=== PATIENT | male | born 2000 | race Caucasian/White ===

== ENCOUNTER 2025-04-26 07:31 | Emergency (ER) | payer BC, SELFPAY ==
[2025-04-26 07:35] VITALS: BP 125/90
--- NOTE | 2025-04-26 07:43 | ED.GENMED ---
History of Present Illness
General
Chief Complaint: Abdominal Symptoms
Source: patient
Exam Limitations: none
Time Seen by Provider: 04/26/25 07:39
Nursing documentation reviewed up to this point in time: agreed with
History of Present Illness
History of Present Illness:
Patient is a 24 y.o male w/ hx Crohns disease who presents to the emergency department w/ 1 day of abdominal pain, vomiting and diarrhea. Patient reports initial onset of symptoms yesterday morning however by the afternoon they seem to improve.
Unfortunately as patient states he woke up around 3:30 AM with significant nausea and severe abdominal pain. He has had intractable vomiting and diarrhea since. He states emesis dark with occasional specks of blood. He denies any bloody diarrhea.
Abdominal pain is 10/10 in severity and somewhat diffusely located throughout abdomen.
He has no known fevers. He states symptoms feel similar to prior Crohn's flares. He was able to tolerate some food/acid afternoon once symptoms improved
He is currently on Humira however has been having some insurance coverage problems and has only been taking it about once a month although it is prescribed to be taken biweekly.
Past History
Past History
ED Past Medical History: Psychiatric (depression, anxiety) and Other (crohn's )
ED Past Surgical History: Other (drainage of abscess)
Social History
Tobacco: Non-smoker
Alcohol: Occasional
Drug: Marijuana (occasional but none recently)
Personal: Single
Living: with family
Phy Exam
Physical Exam
Physical Exam:
Vitals: Patient's vital signs are stable. Afebrile
General: Patient is pale appearing
Skin: Warm and dry, no rashes or lesions
Head: Normocephalic, atraumatic
Eyes: Sclera nonicteric.
Throat: Protecting airway
Neck: Normal ROM, no cervical spine tenderness, no meningismus
Cardiac: Regular rate and rhythm, no murmurs.
Pulm: Normal respiratory effort, no wheezes, rales, rhonchi heard on exam
Abdomen: Abdomen soft. Mild diffuse tenderness without rebound tenderness or guarding. No focal tenderness McBurney's point.
Extremities: No evidence of cyanosis or edema
Neuro: AAOx3. Grossly intact.
Psychiatric: Normal affect.
Course
Orders/Labs/Results
Orders:
Orders
04/26/25 07:42
IV Insert/Care/Rem.- Treatment PRN
04/26/25 07:47
0.9% Sodium Chloride 1000 ml [Nss] 1,000 ml IV BOLUS
04/26/25 07:49
C-Reactive Protein Urgent
Comment: ADD ON
Complete Blood Count/With Diff Urgent
Comprehensive Metabolic Panel Urgent
Erythrocyte Sed Rate Urgent
Comment: ADD ON
Lipase Urgent
04/26/25 07:53
HYDROmorphone [Dilaudid] 0.5 mg IV NOW STA
Ondansetron Injectable [Zofran] 4 mg IV NOW STA
04/26/25 07:54
CT Abd/pelvis W Iv Cont Urgent
Comment: hx Crohns
Reason For Exam: Diffuse abdominal pain, N/V/D
04/26/25 09:06
Metoclopramide [Reglan] 10 mg IV NOW STA
04/26/25 09:27
HYDROmorphone [Dilaudid] 0.5 mg IV NOW STA
04/26/25 12:30
Add On- LAB Routine
Tests Added?: CRP, ESR
04/26/25 12:34
Consult Gastroenterology [GASTROINTESTINAL CONSULT] Routine
Consulting Provider: Stacia Hoang
Was physician already notified: Yes
04/26/25 13:25
Prednisone [Deltasone] 40 mg PO NOW STA
Abnormal Lab Results
04/26/25
07:49
WBC 18.6 H 10^3/uL
(4.8-10.8)
MCH 31.8 H pg
(27.0-31.0)
MCHC 37.1 H g/dL
(33.0-37.0)
Abs Immat Gran (auto) 0.1 H 10^3/uL
(0-0.05)
Absolute Neuts (auto) 15.4 H 10^3/uL
(1.4-6.5)
Absolute Monos (auto) 1.2 H 10^3/uL
(0.1-0.6)
Neutrophils % 83.0 H %
(42.2-75.2)
Lymphocytes % 9.2 L %
(20.5-51.1)
Glucose 150 H mg/dl
(70-99)
Total Protein 8.7 H g/dl
(6.3-8.2)
Albumin 5.4 H g/dl
(3.5-5.0)
04/26/25 07:49
04/26/25 07:49
Vital Signs
Initial and Last Documented VS:
Initial Vital Signs
Temp Pulse Resp BP Pulse Ox
98.0 F 60 16 125/90 99
04/26/25 07:35 04/26/25 07:35 04/26/25 07:35 04/26/25 07:35 04/26/25 07:35
Last Documented Vital Signs
Temp Pulse Resp BP Pulse Ox
98.0 F 82 16 120/81 99
04/26/25 07:35 04/26/25 13:42 04/26/25 13:42 04/26/25 13:42 04/26/25 10:49
MDM/Problems Addressed
Differential Diagnosis Includes:
Not limited to: Crohn's flare, gastroenteritis, colitis, appendicitis, diverticulitis, gastritis, etc.
MDM/Problems Addressed:
24 y.o male w/ hx Crohns presenting with 1 day of severe abdominal pain associated with intractable nausea/vomiting/diarrhea. Feels similar to prior flares of Crohn's disease. No fever. Vitals and physical exam as above.
Differential includes likely acute exacerbation of Crohn's disease, however unable to completely exclude other intra-abdominal pathology such as appendicitis, cholecystitis, carditis, etc. Plan: Labs, CT scan abdomen/pelvis. Will treat symptoms
and reassess after above.
Update: Labs significant leukocytosis of 18.6. Chemistry without clinically significant abnormalities. CT scan reveals colitis and distal ileitis suspicious for Crohn's disease flare. Do not suspect acute infection.
Patient has required multiple rounds of IV antiemetics and pain control in emergency department. Will admit for further management and symptom control. Patient comfortable with plan. Discussed with GI, Dr. Moreno. Will hold any steroid or
antibiotics at this time. Patient accepted to hospital service in stable condition.
Chronic conditions affecting care:
Crohn's disease
Acute Exacerbation and/or Progression of Chronic Illness:
Acute crohn's flare
*Radiology
Radiology exam reviewed: radiology read reviewed
*Pulse Oximetry
SaO2: 99
Oxygen Mode of Delivery: Room air
Patient hypoxic: no
*EKG
Interpreted by ED Provider?: NA
*[employer] Airspace Control Officer Interpretation
Rate: [employer] Control Officer- N/A
*Critical Care Note
Total Time (30-74mins, 75-104mins- exclusive of procedures): Not Applicable
Patient Management
Discussion with other providers: Hospitalist and [employer] Rec[employer]iter (Case discussed w/ gastroenterology)
Escalation/DeEscalation of care consider admission/obs:
Recommended admission
Update Note
Update Note:
Update: I was called to patients room at 12:50. Patient was accepted to hospitalist service around 1045AM however admitting physician has not been down to evaluate patient thus far. Patient is now feeling almost completely better. His pain is gone.
He has not had any episodes of nausea/vomiting in a few hours and is tolerating PO liquids. Recommended admission for continued management of symptoms however patient ademant that he would like to go home and will follow - up with his outside GI
physician in a few days. Discussed with out GI, Dr. Hoang and will plan to start patient on two week course of prednisone. Very strict return precautions discussed.
ED Attending Note
-
Portions of this chart may have been created with voice recognition software.� Occasional wrong word or��sound alike� substitutions may have occurred due to the inherent limitations of voice recognition software.
Discharge Plan
Departure
Patient Disposition: Home (Routine Discharge)
Date of Disposition: 04/26/25
Time of Disposition: 10:39
Patient with high blood pressure during this ER visit?: No
Discharge Problem:
Crohn's colitis
Instructions: Crohn disease in adults, Abdominal pain in adults - ED (DC)
Prescriptions:
New
ondansetron 4 mg tablet,disintegrating
4 mg PO Q8H PRN (Reason: nausea and vomiting) Qty: 7 0RF
prednisone 20 mg tablet
40 mg PO DAILY 14 Days Qty: 26 0RF
No Action
calcium carbonate [Tums] 200 mg calcium (500 mg) Tablet,Chewable
200 mg PO QIDPRN PRN (Reason: acid reflux)
buspirone 15 mg tablet
15 mg PO TID
duloxetine 40 mg capsule,delayed release(DR/EC)
40 mg PO HS
adalimumab 80 mg/0.8 mL Pen Injector Kit
80 mg SC Q2W
Referrals:
Soledad Velasquez MD [Family Provider, Internal Medicine] - Follow up in 5-7 days
Stand Alone Forms: Return to Work
Activity Restrictions/Additional Instructions:
RETURN TO THE EMERGENCY DEPARTMENT ANY FEVERS, PERSISTENT/WORSENING ABDOMINAL PAIN, INTRACTABLE NAUSEA/VOMITING, PERSISTENT DIARRHEA, SIGNS OF SEVERE DEHYDRATION, WORSENING IN CURRENT SYMPTOMS, OR ANY OTHER CONCERNS
- A prescription for prednisone has been sent to your pharmacy. Take 40 mg for the next 2 weeks. You were given your first dose in the emergency department today.
- Continue to take Tylenol and/or Motrin as needed for pain. You can take Zofran as needed for nausea. It is important to stay well-hydrated. Follow a bland diet and slowly advance as tolerated.
- As discussed�it is very important that you follow-up with your GI doctor shortly for further management.
Monitor your symptoms very closely at home and return to the emergency department with any acute worsening/new symptoms or any signs of worsening infection
Interventions
Interventions:
*Risk Screen - Suicide Last Done: 04/26/25 07:35
*General Assessment Last Done: 04/26/25 07:45
*Neglect/Abuse Screening Last Done: 04/26/25 07:35
*ED- Fall Risk Assessment Last Done: 04/26/25 07:45
*ED COVID-19 Vaccine History Last Done: 04/26/25 07:45
*Nursing Disposition Last Done: 04/26/25 13:48
ET-Cfdwvb-Ppukevgruy Assessment Last Done: 04/26/25 07:45
Discharge Date and Time
Discharge Date/Time: 04/26/25 13:48
Print Language: TANZANIAN
[2025-04-26 07:45] VITALS: BMI 23.7
[2025-04-26] MEDS: NSS 1000 IV (07:48)
[2025-04-26] MEDS: DILAUDID 0.5 MG IV ×2 (08:00→09:42)
[2025-04-26] MEDS: ZOFRAN 4 MG IV (08:01)
[2025-04-26 08:02] LABS: Hematocrit 45.8 % (39.0-52.0); Hemoglobin 17.0 g/dL (13.0-18.0); Mean Corp Hgb Conc. 37.1 g/dL (33.0-37.0); Mean Corpuscular Volume 85.6 fL (80.0-94.0); Nucleated Red Blood Cells % 0 % (-); Platelet Count 311 10^3/uL (130-400); Red Cell Dist. Width 11.9 % (11.5-14.5)
[2025-04-26 08:27] LABS: ALT (SGPT) 25 U/L (0-50); AST (SGOT) 28 U/L (17-59); Albumin 5.4 g/dl (3.5-5.0); Alkaline Phosphatase 78 U/L (38-126); Blood Urea Nitrogen 11 mg/dl (9-20); Calcium 10.2 mg/dl (8.4-10.2); Carbon Dioxide 23 mmol/L (22-30); Chloride 104 mmol/L (98-107); Estimated Creatinine Clearance 121 ml/min; Glucose 150 mg/dl (70-99); Lipase 157 U/L (23-300); Potassium 3.6 mmol/L (3.5-5.1); Sodium 142 mmol/L (135-145); Total Protein 8.7 g/dl (6.3-8.2); eGFR > 60.00
[2025-04-26] MEDS: REGLAN 10 MG IV (09:10)
[2025-04-26 09:13] VITALS: BP 134/92
[2025-04-26 10:49] VITALS: BP 100/59
[2025-04-26 13:42] VITALS: BP 120/81
[2025-04-26] MEDS: DELTASONE 40 MG PO (13:42)
[2025-04-26 14:30] LABS: C-Reactive Protein < 5.00 mg/L (0.0-10.00)
== END 2025-04-26 13:48 | disposition home or self-care (01) ==
LOC: EMR 07:31
PROVIDERS: CONSULT PHYSICIAN Internal Medicine; EMERGENCY PHYSICIAN Student in an Organized Health Care Education/Training Program; FAMILY PHYSICIAN Family Medicine
DX: K50.10 Crohn's disease of large intestine without complications (principal); D72.829 Elevated white blood cell count, unspecified; F41.9 Anxiety disorder, unspecified; F32.A Depression, unspecified
CPT/HCPCS: 99284; 96374; 96375 ×2; 96376; 96361; 74177; 80053; 83690; 85025; 85652; 86140; Q9967

== ENCOUNTER 2025-04-28 10:49 | Inpatient (IN) | payer BC, SELFPAY ==
[2025-04-28 08:39] VITALS: BP 155/74
[2025-04-28] MEDS: NSS 1000 IV ×3 (08:58→22:37)
[2025-04-28] MEDS: DILAUDID 0.5 MG IV ×3 (09:00→19:29)
[2025-04-28] MEDS: ZOFRAN 4 MG IV ×2 (09:00→09:58)
[2025-04-28 09:01] VITALS: BMI 23.9
[2025-04-28 09:15] LABS: Hematocrit 45.1 % (39.0-52.0); Hemoglobin 16.7 g/dL (13.0-18.0); Mean Corp Hgb Conc. 37.0 g/dL (33.0-37.0); Mean Corpuscular Volume 87.7 fL (80.0-94.0); Nucleated Red Blood Cells % 0 % (-); Platelet Count 259 10^3/uL (130-400); Red Cell Dist. Width 11.9 % (11.5-14.5)
[2025-04-28 09:46] LABS: ALT (SGPT) 22 U/L (0-50); AST (SGOT) 24 U/L (17-59); Albumin 5.3 g/dl (3.5-5.0); Alkaline Phosphatase 59 U/L (38-126); Blood Urea Nitrogen 13 mg/dl (9-20); Calcium 10.2 mg/dl (8.4-10.2); Carbon Dioxide 22 mmol/L (22-30); Chloride 105 mmol/L (98-107); Estimated Creatinine Clearance > 125 ml/min; Glucose 130 mg/dl (70-99); Lipase 233 U/L (23-300); Potassium 3.3 mmol/L (3.5-5.1); Sodium 140 mmol/L (135-145); Total Protein 8.6 g/dl (6.3-8.2); eGFR > 60.00
--- NOTE | 2025-04-28 09:48 | ED.GENMED ---
History of Present Illness
General
Chief Complaint: Abdominal Symptoms
Source: patient
Exam Limitations: none
Time Seen by Provider: 04/28/25 08:53
History of Present Illness
History of Present Illness:
23-year-old male with history of Crohn disease. Has had 3 to 4 days of recurrent abdominal pain nausea vomiting and watery diarrhea. [address] scan showed ileitis/Crohn's flare. Leukocytosis of 18,000 at the time. Patient initially was
going to be admitted but elected to go home to follow-up. He is on Humira. In the last 24 hours pain has recurred along with recurrent vomiting and diarrhea. No blood in the stool.
Past History
Past History
ED Past Medical History: Psychiatric (depression, anxiety) and Other (crohn's )
ED Past Surgical History: Other (drainage of abscess)
Social History
Tobacco: Non-smoker
Alcohol: Occasional
Drug: Marijuana (occasional but none recently)
Personal: Single
Living: with family
Review of Systems
Review of Systems
All Other Systems: Not applicable
Constitutional: Denies fever
Respiratory: Reports no symptoms
Cardiac: Reports no symptoms
Phy Exam
Physical Exam
Physical Exam:
GENERAL: Alert. Pale. Appears moderately uncomfortable
EYE: Orbits normal.
NECK: Supple, no significant adenopathy.
CARDIAC: Regular rate and rhythm without any obvious murmurs.
LUNGS: Clear breath sounds,normal
ABDOMEN: Soft, decreased bowel sounds are present. No distention. Mild diffuse tenderness however no localized tenderness rebound or guarding
NEUROLOGICAL: Alert and oriented , grossly non-focal
SKIN: Warm and dry, no rash or lesion, no discoloration, skin intact.
MUSCULOSKELETAL: No edema,no deformity.Good color
PSYCH: Normal and appropriate interaction.
Course
Orders/Labs/Results
Orders:
Orders
04/28/25 08:53
HYDROmorphone [Dilaudid] 0.5 mg .ROUTE .STK-MED ONE
Ondansetron Injectable [Zofran] 4 mg .ROUTE .STK-MED ONE
04/28/25 08:54
IV Insert/Care/Rem.- Treatment PRN
0.9% Sodium Chloride 1000 ml [Nss] 1,000 ml IV BOLUS
04/28/25 08:55
CR Obstruct Series W/pa Chest Urgent
Comment:
Reason For Exam: Recurrent vomiting/Crohn's disease
04/28/25 08:59
HYDROmorphone [Dilaudid] 0.5 mg IV NOW STA
Ondansetron Injectable [Zofran] 4 mg IV NOW STA
04/28/25 09:05
Complete Blood Count/With Diff Urgent
Comprehensive Metabolic Panel Urgent
Lipase Urgent
04/28/25 09:07
STOOL [C difficile Antigen & Toxins] Urgent
JAVAD Source: Feces/Stool
Specimen Description:
Stool Culture Urgent
JAVAD Source: Feces/Stool
Specimen Description:
Piperacillin/Tazo 3.375 Gram [Zosyn] 3.375 gram in 50 ml IV NOW
04/28/25 09:55
HYDROmorphone [Dilaudid] 0.5 mg IV NOW STA
Ondansetron Injectable [Zofran] 4 mg IV NOW STA
04/28/25 Lunch
NPO
Allow oral meds: Yes
Allow clear liquids: Sips of Clears
04/28/25 10:22
Admit/Transfer Patient As Directed
Co-Sign Provider:
Level of Care: Inpatient admission
Assign to:: Medical/Surgical
Physician / Group: Rody Tirado - hospitalists
Diagnosis: acute Crohns Flare
Reason for Hospitalization: acute Crohns Flare - IV steroids
Expected length of stay greater than two midnights?: Yes
ELOS- Estimated Length of Stay in days: 2
I certify the patient meets the requirements for IP care: Yes
Metoclopramide [Reglan] 5 mg IV Q6HPRN PRN
PRN Pain Medication Management As Directed
May give lesser potent ordered pain med per pt: Yes
preference::
Protocol:: Medication orders for pain may be administered in a
manner that supports deferring to patient preference
when the pt is:
- Requesting an ordered lesser potent pain medication.
Least to most potent pain medications are defined
as: acetaminophen < NSAID < tramadol < opioids
(morphine, oxycodone, hydromorphone).
- Requesting a lesser dose of the same medication IF
ORDERED.
- Requesting a less intrusive route of administration
if both routes are prescribed by the provider (PO <
IV).
04/28/25 10:23
Code Status As Directed
Resuscitation Status: Full Code
04/28/25 10:25
GASTROINTESTINAL CONSULT Routine
Consulting Provider: Ashley Omalley
Was physician already notified: Yes
04/28/25 11:17
0.9% Sodium Chloride 1000 ml [Nss] 1,000 ml IV 100 mls/hr
Acetaminophen [Tylenol] 650 mg PO Q4HPRN PRN
Bisacodyl [Dulcolax] 10 mg RECTAL [id number] PRN
Docusate W/Senna [Senokot-S] 1 tablet PO BIDPRN PRN
HYDROmorphone [Dilaudid] 0.5 mg IV Q4HPRN PRN
Ketorolac [Toradol] 10 mg IV Q6HPRN PRN
Ondansetron Injectable [Zofran] 4 mg IV Q6HPRN PRN
Polyethylene Glycol Powder [Miralax] 17 grams PO DAILYPRN PRN
04/28/25 11:17
Activity As Directed
Activity Level: As Tolerated
Vital Signs As Directed
Frequency: Per unit guidelines
DX Deep Vein Thrombosis Video Routine
04/28/25 12:00
MethylPREDNISolone PF [Solu-Medrol Pf] 40 mg IV Q12H
04/28/25 12:44
CRP [C-Reactive Protein] Urgent
ESR [Erythrocyte Sed Rate] Urgent
04/28/25 16:00
Buspirone [Buspar] 15 mg PO TID
04/28/25 22:00
Duloxetine Delayed Release [Cymbalta Delayed Release] 40 mg PO HS
04/29/25 06:40
Basic Metabolic Panel IN AM
Complete Blood Count/No Diff IN AM
04/30/25 06:00
Basic Metabolic Panel IN AM
Complete Blood Count/No Diff IN AM
05/01/25 06:00
Basic Metabolic Panel IN AM
Complete Blood Count/No Diff IN AM
Abnormal Lab Results
04/28/25
09:05
WBC 10.9 H 10^3/uL
(4.8-10.8)
MCH 32.5 H pg
(27.0-31.0)
Absolute Neuts (auto) 7.7 H 10^3/uL
(1.4-6.5)
Absolute Monos (auto) 0.9 H 10^3/uL
(0.1-0.6)
Potassium 3.3 L mmol/L
(3.5-5.1)
Glucose 130 H mg/dl
(70-99)
Total Protein 8.6 H g/dl
(6.3-8.2)
Albumin 5.3 H g/dl
(3.5-5.0)
04/28/25 09:05
04/28/25 09:05
Vital Signs
Initial and Last Documented VS:
Initial Vital Signs
Temp Pulse Resp BP Pulse Ox
97.4 F 59 20 155/74 100
04/28/25 08:39 04/28/25 08:39 04/28/25 08:39 04/28/25 08:39 04/28/25 08:39
Last Documented Vital Signs
Temp Pulse Resp BP Pulse Ox
98.2 F 72 16 118/75 98
04/29/25 07:00 04/29/25 07:00 04/29/25 07:00 04/29/25 07:00 04/29/25 08:10
MDM/Problems Addressed
Differential Diagnosis Includes:
Crohn's flare. Ileitis. Clear nonsurgical abdomen although patient does appear moderately uncomfortable. Very reluctant to repeat CAT scan in him 2 days later. Will start with plain x-rays. X-rays are unremarkable. White count is improved.
Clearly warrants admission however. Gastroenterology and hospitalist contacted.
*Radiology
Radiology exam reviewed: preliminary read by ED provider (Negative)
*Pulse Oximetry
SaO2: 100
Oxygen Mode of Delivery: Room air
Patient hypoxic: no
*Critical Care Note
Total Time (30-74mins, 75-104mins- exclusive of procedures): Not Applicable
Data Reviewed
Review of Other/Old Records Reveals: Labs, Records and Testing
ED Attending Note
-
Portions of this chart may have been created with voice recognition software.� Occasional wrong word or��sound alike� substitutions may have occurred due to the inherent limitations of voice recognition software.
Discharge Plan
Departure
Patient Disposition: Admit
Date of Disposition: 04/28/25
Time of Disposition: :26
Presentation/result/management discussed w/ accepting MD/DO: gi
Discharge Problem:
Acute Crohn's flare
Interventions
Interventions:
*Risk Screen - Suicide Last Done: 04/28/25 09:08
*General Assessment Last Done: 04/28/25 09:08
*Neglect/Abuse Screening Last Done: 04/28/25 09:08
*ED- Fall Risk Assessment Last Done: 04/28/25 09:08
RH-Ywbade-Mwodmthrya Assessment Last Done: 04/28/25 09:08
[2025-04-28] MEDS: ZOSYN 50 IV (09:58)
--- NOTE | 2025-04-28 10:09 | HPS.HSE ---
Family Physician
-
Family Physician: Soledad Velasquez
Chief Complaint
-
abd pain/nausea
History of Present Illness
24 y/o M, hx of Crohn disease (on Humira, follows with Dr. White) presenting to ER for ongoing abd pain/nausea/vomiting/diarrhea. Patient presented on 04/26 to ER with symptoms for 24 hours prior to presentation - at that time had dark
stools/specks of blood. He was treated in ER and offered admission after seeing GI but opted to go home with oral steroids. CT at that time shows ileitis and colitis. Since ER discharge, patient has had poor oral intake and recurrent
vomiting/diarrhea. at present patient denies blood in stool
Of note, He is currently on Humira however has been having some insurance coverage problems and has only been taking it about once a month although it is prescribed to be taken biweekly.
Medical History
Past Medical History
Past Medical History: Reports Other (crohns, Depression/Anxiety)
Past Surgical History: Reports None
Social History
Tobacco: Non-smoker
Alcohol: Occasional
Drug: Marijuana (occasional)
Personal: Other (engaged)
Living: Other (fiance)
Family History
Family History: Not pertinent
Allergies / Home Medications
Allergies reflects when Allergies were last updated in [employer].
Home Medications with original date entered in [employer]
Allergy/Medication List:
Allergies
Allergy/AdvReac Type Severity Reaction Status Date / Time
No Known Allergies Allergy Verified 04/26/25 07:37
Home Medications
adalimumab 80 mg/0.8 mL subcutaneous pen kit 80 mg SC Q2W Crohn's disease 04/26/25
buspirone 15 mg tablet 15 mg PO TID Mental Health/Anxiety 04/26/25
duloxetine 40 mg capsule,delayed release 40 mg PO HS Mental Health 04/26/25
ondansetron 4 mg disintegrating tablet 4 mg PO Q8HPRN PRN nausea and vomiting 04/28/25
prednisone 20 mg tablet 40 mg PO DAILY 04/28/25
Review of Systems
-
Constitutional: Reports Chills
EENT: Reports No Symptoms
Respiratory: Reports No Symptoms
Cardiac: Reports No Symptoms
Abdomen/GI: Reports See HPI
Musculoskeletal: Reports No Symptoms
Skin: Reports No Symptoms
Neurological: Reports No Symptoms
Endocrine: Reports No Symptoms
Hematologic/Lymphatic: Reports No Symptoms
Psych: Reports No Symptoms
Physical Exam
Vital Signs
Vital Signs
Temp Pulse Resp BP Pulse Ox
97.4 F 59 20 155/74 100
04/28/25 08:39 04/28/25 08:39 04/28/25 08:39 04/28/25 08:39 04/28/25 09:51
Physical Exam
General: No Apparent Distress
HEENT: NormoCephalic and Anicteric
Respiratory: Clear; No Wheezes or Rales
Cardiac: S1/S2 and Regular Rhythm
GI: Tender (diffusely)
Neuro: AO x 3
Psych: Calm
Laboratory Results
-
04/28/25 09:05
04/28/25 09:05
Laboratory Results
Total Bilirubin 1.1 mg/dl (0.2-1.3) 04/28/25 09:05
AST 24 U/L (17-59) 04/28/25 09:05
ALT 22 U/L (0-50) 04/28/25 09:05
Alkaline Phosphatase 59 U/L (38-126) 04/28/25 09:05
Lipase 233 U/L (23-300) 04/28/25 09:05
Data Reviewed
-
Diagnostic Radiology: Report Reviewed by me and Discussed with Patient
CT Scan: Report Reviewed by me and Discussed with Patient
Lab Data: Labs Reviewed by me
Impression/Plan
-
Assessment:
Suspected acute Crohn's Flare
- manifested with nausea/vomiting/diffuse abdominal pain/bloody diarrhea
- did not improve with oral steroids outpatient - ongoing symptoms
- admit
- ESR and CRP normal last admit - repeat
- CT 04/26: Mild to moderate diffuse wall thickening involving the colon and distal ileum, which likely represents colitis and distal ileitis in this patient with a history of Crohn's disease.
- OBS series: no obstruction
- ER gave IV Zosyn; would hold off further doses for now (WBC lower, no fevers)
- empiric IV Solu-Medrol 40mg q12h
- GI consult and follow recs
Depression/Anxiety
- Buspar/Cymbalta
DVT ppx: SCDs
Code: Full
--- NOTE | 2025-04-28 10:52 | CON.GI ---
Addendum entered and electronically signed by Ashley Omalley MD 04/28/25 19:57:
I saw and examined the patient.
The medical affairs leader's note was reviewed and I agree with the note.
--abdominal pain/ nausea/ vomiting/ diarrhea / CT abd 04/26 IMPRESSION: Mild to moderate diffuse wall thickening involving the colon and distal ileum, which likely represents colitis and distal ileitis . patient was evaluated in ED 04/26 and was
discharged on prednisone 20 mg - admitted again today with worsening symptoms
-- hx of Crohn's disease on humira - compliance ? missing doses. follows up with
plan
ok to start CLD if nausea/ vomiting
check CRP/ stool calpro
solumedrol 20 mg tid
stool studies for infection if diarrhea persists
antiemetics as needed
DVT prophylaxis with heparin
Original Note:
Consultation
-
Date/Time Consultation Requested: 04/28/2025
Date/Time Consultation Performed: 04/28/2025
Requesting Provider: Rody Tirado
Performing Provider: Ashley Omalley
Reason for Consultation: Crohn's flare
Medical History
Chief Complaint / HPI
Chief Complaint: Abdominal pain/vomiting/diarrhea
History of Present Illness:
23-year-old male with history of Crohn disease (on Humira, follows with Dr. White), anxiety/depression presents with worsening abdominal pain, nausea, vomiting, diarrhea for 24 hours.
Patient had come to the ED on 04/26 for sx of severe 10/10 abdominal pain, nausea, vomiting with dark emesis, diarrhea, with sx feeling similar to past Crohn's flares. Labs drawn at that time showed leukocytosis of 18.6, wnl chemistry, CT scan which
demonstrated distal ileitis suspicious for Crohn's disease flare. Acute infection was not suspected at that time. Patient was treated with IV antiemetics, pain control and was offered admission for further management and symptom control however he
started feel better and decided to go home feeling as if the symptoms have resolved.
After going home patient continued on a clear liquid diet and bland chicken. He had near complete resolution of abdominal pain, diarrhea and had no new episodes of vomiting until today 04/28 when he woke up in the morning with severe abdominal pain,
vomiting clear yellow fluid, and x 4 episodes of liquid nonbloody diarrhea. He denies any fevers or chills during this time. Please return if symptoms prompted him to come to the ED.
GI was consulted for Crohn's flare.
Of note, he follows with Dr. White for GI, but has not been able to schedule a follow-up appointment for some time due to availability. He was diagnosed with Crohn's disease in middle school following months of workup for symptoms of weight
loss, malnutrition, fatigue, lower GI symptoms of diarrhea. During that time he had several bouts of perirectal abscesses requiring drainage under anesthesia. He was managed on oral medication until 2019 when he was finally started on Humira.
Last EGD and colonoscopy were done [address]22 Dr. White and reportedly showing no signs of disease. Reports being symptom-free without significant flares or hospitalizations since starting Humira until recently. He does endorse insurance coverage
issues resulting in missed doses of Humira for the last 9 months. He normally takes Humira every 2 weeks, however reports that sometimes he would have to wait will delay a dose by up to 1 to 2 weeks due to insurance. He has recently started a new
job with good insurance that reportedly covers [employer], though he has not seen GI about switching medications. He is considering switching to a new GI provider.
When seen in the ED patient had received IV fluids, IV pain medication, started on IV Solu-Medrol. Obstructive series was done which was negative. Has had a few episodes of small-volume yellow vomitus without blood. No new episodes of diarrhea
since arrival to the ED. Was given 1 dose of IV Zosyn in the ED. He also has concerns over a small pimple-like lesion on the lower medial gluteal fold which he was trying to schedule with GI to have evaluated.
Past Medical History
Past Medical History: Other
Past Surgical History: Other (Drainage of perirectal abscess under anesthesia)
Social History
Tobacco: Non-Smoker
Alcohol: Occasional
Drug: Marijuana
Personal: Single
Living: With Family
Employment: Employed
Family History
Family History: Reviewed & Not Pertinent
Allergies / Home Medications
Allergy/AdvReac Type Severity Reaction Status Date / Time
No Known Allergies Allergy Verified 04/26/25 07:37
�Medication �Instructions �Recorded
adalimumab 80 mg/0.8 mL 80 mg SC Q2W Crohn's disease 04/26/25
subcutaneous pen kit
buspirone 15 mg tablet 15 mg PO TID Mental Health/Anxiety 04/26/25
duloxetine 40 mg capsule,delayed 40 mg PO HS Mental Health 04/26/25
release
ondansetron 4 mg disintegrating 4 mg PO Q8HPRN PRN nausea and 04/28/25
tablet vomiting
prednisone 20 mg tablet 40 mg PO DAILY 04/28/25
Review of Systems
-
History Source: Patient
All other systems: A 12 pt ROS was Negative except as stated above in HPI
Vital Signs
Temp Pulse Resp BP Pulse Ox
97.4 F 59 20 155/74 100
04/28/25 08:39 04/28/25 08:39 04/28/25 08:39 04/28/25 08:39 04/28/25 09:51
Physical Exam
Exam
General: Well Developed, Well Nourished, No Apparent Distress and Comfortable
HEENT: Normocephalic, Anicteric, Moist Mucous Membranes and Atraumatic
Respiratory: Clear and Non Labored Respirations; Negative Wheezes, Rales or Rhonchi
Cardiac: S1/S2 and Regular Rhythm; Negative Murmur or Rub
Breast: N/A
GI: Soft, Non Distended, Normal Bowel Sounds and Tender (Diffuse)
Rectal: Other (1 cm pustule-like lesion on the lower left medial gluteal fold approximately 4 to 5 cm from the anus, without expressible discharge, induration or tenderness. Normal anal sphincter tone. No blood or stool noted. One skin tag noted. No
abnormal perianal discharge, masses, or induration. )
Musculoskeletal: No Clubbing, No Cyanosis and No Edema
Skin: Warm and Dry
Neuro: AO x 3
Psych: Calm
Results
WBC 10.9 10^3/uL (4.8-10.8) H 04/28/25 09:05
Hgb 16.7 g/dL (13.0-18.0) 04/28/25 09:05
Hct 45.1 % (39.0-52.0) 04/28/25 09:05
MCV 87.7 fL (80.0-94.0) 04/28/25 09:05
Plt Count 259 10^3/uL (130-400) 04/28/25 09:05
Absolute Neuts (auto) 7.7 10^3/uL (1.4-6.5) H 04/28/25 09:05
Sodium 140 mmol/L (135-145) 04/28/25 09:05
Potassium 3.3 mmol/L (3.5-5.1) L 04/28/25 09:05
Chloride 105 mmol/L (98-107) 04/28/25 09:05
Carbon Dioxide 22 mmol/L (22-30) 04/28/25 09:05
BUN 13 mg/dl (9-20) 04/28/25 09:05
Creatinine 0.9 mg/dL (0.7-1.3) 04/28/25 09:05
Calcium 10.2 mg/dl (8.4-10.2) 04/28/25 09:05
Total Bilirubin 1.1 mg/dl (0.2-1.3) 04/28/25 09:05
AST 24 U/L (17-59) 04/28/25 09:05
ALT 22 U/L (0-50) 04/28/25 09:05
Alkaline Phosphatase 59 U/L (38-126) 04/28/25 09:05
Lipase 233 U/L (23-300) 04/28/25 09:05
Diagnostic Image Results:
Prior GI Procedures:
EGD:
Colonoscopy:
Assessment / Plan
-
23-year-old male with history of Crohn disease, on Humira however has been missing intermittent doses for the last 9 months due to insurance issues who presented less than 48 hours after recent ED visit for abdominal pain and nausea vomiting
diarrhea and CT imaging evidence of acute Crohn's flare.
#Acute IBD flare
#Diarrhea
#Vomiting
#Abdominal pain
- Leukocytosis on admission of 10.9, however reduced from WBC count of 18.6 from 2 days ago, afebrile, hypertensive
- Chemistry unremarkable except for hypokalemia 3.3 -- repleted
- ESR/CRP unremarkable, adding fecal calprotectin
- Continue to trend CBC, CMP, temperature curve
- C. difficile and stool culture pending
- Obstructive series on x-ray, negative
- Agree to continue with IV Solu-Medrol
- Chemoprophylaxis for DVT given high risk of thrombosis and active IBD patients
- IV antiemetics as needed
- Outpatient scopes have been performed Dr. White, most recent EGD/colonoscopy 2 years ago reportedly showing no disease
- May consider inpatient flex sig/colonoscopy/bidirectional scope vs. outpatient follow-up if patient decides to switch care over to our provide
GI will follow
-
-
Thank you for consultation and allowing me to participate in the patient's care. Please call the information systems auditor GI physician during the after hours with any questions or concerns.
[2025-04-28] MEDS: SOLU-MEDROL PF 40 MG IV (12:23)
[2025-04-28] MEDS: KCL 40 MEQ PO (12:23)
[2025-04-28 12:27] VITALS: BP 113/72
[2025-04-28 13:12] LABS: C-Reactive Protein < 5.00 mg/L (0.0-10.00)
--- NOTE | 2025-04-28 13:53 | CM ---
CM reviewed chart and met with pt bedside in ED. Lives with his SO. Independent in ADLs, personal care and ambulation at baseline.
Confirms prescription coverage.
No hx VN or SNF.
PCP: Jen Velasquez
Pharmacy: [facility] [phone]
Anticipate discharge home, Cm will continue to follow for any discharge planning needs.
[2025-04-28 15:37] VITALS: BP 121/70
[2025-04-28] MEDS: BUSPAR 15 MG PO ×2 (16:13→21:46)
[2025-04-28] MEDS: LOVENOX 40 MG SC (17:32)
[2025-04-28 18:13] VITALS: BP 118/86
--- NOTE | 2025-04-28 18:16 | PTCARENOTE ---
pt transferred from ED to [phone]
[2025-04-28 18:17] VITALS: BMI 23.2
[2025-04-28] MEDS: CYMBALTA DELAYED RELEASE 40 MG PO (21:46)
[2025-04-28 23:01] VITALS: BP 118/67
[2025-04-29] MEDS: SOLU-MEDROL PF 40 MG IV ×3 (00:21→16:07)
[2025-04-29 07:00] VITALS: BP 118/75
[2025-04-29 07:17] LABS: Hematocrit 42.2 % (39.0-52.0); Hemoglobin 15.2 g/dL (13.0-18.0); Mean Corp Hgb Conc. 36.0 g/dL (33.0-37.0); Mean Corpuscular Volume 89.8 fL (80.0-94.0); Platelet Count 204 10^3/uL (130-400); Red Cell Dist. Width 11.9 % (11.5-14.5)
[2025-04-29 07:49] LABS: Blood Urea Nitrogen 11 mg/dl (9-20); Calcium 9.0 mg/dl (8.4-10.2); Carbon Dioxide 22 mmol/L (22-30); Chloride 108 mmol/L (98-107); Estimated Creatinine Clearance > 125 ml/min; Glucose 113 mg/dl (70-99); Potassium 5.0 mmol/L (3.5-5.1); Sodium 140 mmol/L (135-145); eGFR > 60.00
[2025-04-29] MEDS: BUSPAR 15 MG PO ×3 (07:50→21:22)
[2025-04-29] MEDS: NSS 1000 IV (08:37)
--- NOTE | 2025-04-29 10:01 | W.PN.HOSP.TC ---
Today's Communication/Plan
-
continue IV steroids
diet advancement as per GI
Assessment / Plan
Assessment / Plan
Assessment:
acute Crohn's Flare
- manifested with nausea/vomiting/diffuse abdominal pain/bloody diarrhea
- did not improve with oral steroids outpatient - ongoing symptoms
- ESR and CRP normal last admit and on repeat here
- CT 04/26: Mild to moderate diffuse wall thickening involving the colon and distal ileum, which likely represents colitis and distal ileitis in this patient with a history of Crohn's disease.
- OBS series: no obstruction
- ER gave IV Zosyn; would hold off further doses for now (WBC lower, no fevers)
- empiric IV Solu-Medrol 40mg q8h; symptoms improving
- Diet: trial clears
- GI following
Depression/Anxiety
- Buspar/Cymbalta
DVT ppx: SCDs
Code: Full
Anticipated Discharge: > 48 hours
Subjective/Interval History
-
Date of Service: April 29, 2025
abdominal pain now 12/26, from 05/28
denies nausea/vomiting
no bowel movements
Objective Data
-
Labs:
Laboratory Results
04/29/25
06:40
WBC 9.8
Hgb 15.2
Hct 42.2
Plt Count 204 D
Sodium 140
Potassium 5.0 D
Chloride 108 H
Carbon Dioxide 22
BUN 11
Creatinine 0.7
Glucose 113 H
Calcium 9.0
Vital Signs:
Vital Signs
Temp Pulse Resp BP Pulse Ox
98.2 F 72 16 118/75 98
04/29/25 07:00 04/29/25 07:00 04/29/25 07:00 04/29/25 07:00 04/29/25 08:10
I&O
04/28/25 04/29/25 04/30/25
06:59 06:59 06:59
Intake Total 1200 / 1200
Balance 1200 / 1200
Physical Exam
-
General: No Apparent Distress
HEENT: Normocephalic and Atraumatic
Respiratory: Negative Wheezes
Cardiac: Regular Rhythm and S1/S2
GI: Soft
Musculoskeletal: No Edema
Neuro: AO x 3
Psych: Calm
Data Reviewed
-
Total Time Spent with Patient (in minutes): 41
Labs: Labs Reviewed by me
[2025-04-29 15:05] VITALS: BP 118/71
--- NOTE | 2025-04-29 15:32 | W.PN.GI.CBS2 ---
Today's Communication / Plan
-
Clear liquid diet
Continue IV steroid
Assessment / Plan
-
23-year-old male with history of Crohn disease, on Humira however has been missing intermittent doses for the last 9 months due to insurance issues who presented less than 48 hours after recent ED visit for abdominal pain and nausea vomiting
diarrhea and CT imaging evidence of acute Crohn's flare.
--abdominal pain/ nausea/ vomiting/ diarrhea / CT abd 04/26 IMPRESSION: Mild to moderate diffuse wall thickening involving the colon and distal ileum, which likely represents colitis and distal ileitis . patient was evaluated in ED 04/26 and was
discharged on prednisone 20 mg - admitted again today with worsening symptoms
-- hx of Crohn's disease on humira - compliance ? missing doses because of insurance cost. follows up with
plan
ok to start CLD . If tolerating okay to advance slowly to low residual diet
CRP normal. stool calpro pending
cont IV solumedrol 20 mg tid
stool studies for infection if diarrhea persists
antiemetics as needed
DVT prophylaxis with heparin
Would recommend outpatient follow-up with Dr. White-emphasized importance of drug compliance. Patient claims he has better insurance now
Total Time Spent with Patient (in minutes): 35
Subjective
Subjective
Date of Service: April 29, 2025
Feeling better today. Abdominal pain is much better. No nausea or vomiting
Objective
Data Reviewed
Laboratory Data:
Laboratory Results
04/29/25 06:40
04/29/25 06:40
Laboratory Results
Total Bilirubin 1.1 mg/dl (0.2-1.3) 04/28/25 09:05
AST 24 U/L (17-59) 04/28/25 09:05
ALT 22 U/L (0-50) 04/28/25 09:05
Alkaline Phosphatase 59 U/L (38-126) 04/28/25 09:05
Lipase 233 U/L (23-300) 04/28/25 09:05
Vital Signs and I&O:
Vital Signs
Temp Pulse Resp BP Pulse Ox
98.2 F 72 16 118/75 98
04/29/25 07:00 04/29/25 07:00 04/29/25 07:00 04/29/25 07:00 04/29/25 08:10
I&O
04/28/25 04/29/25 04/30/25
06:59 06:59 06:59
Intake Total 1200 / 1200
Balance 1200 / 1200
Physical Exam
Physical Exam
GI: Soft, Non Distended and Non Tender
[2025-04-29] MEDS: LOVENOX 40 MG SC (16:59)
[2025-04-29] MEDS: CYMBALTA DELAYED RELEASE 40 MG PO (21:23)
[2025-04-29 23:00] VITALS: BP 112/63
[2025-04-30] MEDS: SOLU-MEDROL PF 40 MG IV ×2 (01:12→08:03)
[2025-04-30 07:11] VITALS: BP 112/73
[2025-04-30] MEDS: BUSPAR 15 MG PO (08:02)
[2025-04-30 09:16] LABS: Hematocrit 43.7 % (39.0-52.0); Hemoglobin 15.7 g/dL (13.0-18.0); Mean Corp Hgb Conc. 35.9 g/dL (33.0-37.0); Mean Corpuscular Volume 88.6 fL (80.0-94.0); Platelet Count 228 10^3/uL (130-400); Red Cell Dist. Width 11.9 % (11.5-14.5)
[2025-04-30 09:42] LABS: Blood Urea Nitrogen 12 mg/dl (9-20); Calcium 9.9 mg/dl (8.4-10.2); Carbon Dioxide 28 mmol/L (22-30); Chloride 102 mmol/L (98-107); Estimated Creatinine Clearance > 125 ml/min; Glucose 116 mg/dl (70-99); Potassium 4.5 mmol/L (3.5-5.1); Sodium 137 mmol/L (135-145); eGFR > 60.00
--- NOTE | 2025-04-30 10:21 | W.PN.HOSP.TC ---
Today's Communication/Plan
-
follow GI recs for solid diet advancement, DC plan and steroid taper plan
Assessment / Plan
Assessment / Plan
Assessment:
acute Crohn's Flare
- manifested with nausea/vomiting/diffuse abdominal pain/bloody diarrhea
- did not improve with oral steroids outpatient - ongoing symptoms
- ESR and CRP normal last admit and on repeat here
- CT 04/26: Mild to moderate diffuse wall thickening involving the colon and distal ileum, which likely represents colitis and distal ileitis in this patient with a history of Crohn's disease.
- OBS series: no obstruction
- ER gave IV Zosyn; would hold off further doses for now (WBC lower, no fevers)
- continue IV Solu-Medrol 40mg q8h; symptoms improving
- Diet: advance to fulls
- GI following
Depression/Anxiety
- Buspar/Cymbalta
DVT ppx: SCDs
Code: Full
Anticipated Discharge: Within 24 hours
Subjective/Interval History
-
Date of Service: April 30, 2025
resting comfortably, no complaints
tolerating clears
Objective Data
-
Labs:
Laboratory Results
04/30/25
08:44
WBC 9.0
Hgb 15.7
Hct 43.7
Plt Count 228
Sodium 137
Potassium 4.5
Chloride 102
Carbon Dioxide 28
BUN 12
Creatinine 0.7
Glucose 116 H
Calcium 9.9
Vital Signs:
Vital Signs
Temp Pulse Resp BP Pulse Ox
98.2 F 67 18 112/73 98
04/30/25 07:11 04/30/25 07:11 04/30/25 07:11 04/30/25 07:11 04/30/25 08:15
I&O
04/29/25 04/30/25 05/01/25
06:59 06:59 06:59
Intake Total 1200 / 1200 1999
Balance 1200 / 1200 1999
Physical Exam
-
General: No Apparent Distress
HEENT: Normocephalic and Atraumatic
Respiratory: Negative Wheezes
Cardiac: Regular Rhythm and S1/S2
GI: Soft
Genito-urinary: No Costovertebral Tender
Neuro: AO x 3
Psych: Calm
Data Reviewed
-
Total Time Spent with Patient (in minutes): 41
Labs: Labs Reviewed by me
--- NOTE | 2025-04-30 10:36 | CM ---
CM reviewed chart, patient seen bedside with family, potential discharge today. Patient denies needs upon discharge, confirms transportation home. CM will continue to follow for all discharge planning needs.
Plan; home no needs
--- NOTE | 2025-04-30 10:45 | W.PN.GI.CBS2 ---
Today's Communication / Plan
-
Can likely discharge today if tolerating low residue/low-fat diet
See plan
Assessment / Plan
-
23-year-old male with history of Crohn disease, on Humira however has been missing intermittent doses for the last 9 months due to insurance issues who presented less than 48 hours after recent ED visit for abdominal pain and nausea vomiting
diarrhea and CT imaging evidence of acute Crohn's flare.
#Acute IBD flare
#Crohn's Disease, on Humira
#Diarrhea
#Vomiting/Nausea
#Abdominal pain
- Tolerating CLD, advance to low-residue/low-fat diet for lunch and possibly discharge in the afternoon today if tolerating diet
- ESR/CRP normal. stool calpro ordered
- cont IV solumedrol 40 mg tid for now - would ultimately advise transitioning to steroid taper p.o. prednisone 40 mg x 5 days, 30 mg x 5 days, 20 mg daily thereafter until seen by GI
- stool studies to rule out infection if diarrhea persists, however not likely needed at this time
- antiemetics as needed
- Continue subcu heparin for DVT prophylaxis
- Patient reports he has enough Humira at home to start taking again. Next dose on schedule would be due 05/01
Would recommend outpatient follow-up with Dr. White, or if patient would prefer he can contact our office for transition of care. Will leave information in discharge paperwork.
Subjective
Subjective
Date of Service: April 30, 2025
Patient is feeling well and tolerating full liquid diet. No new bowel movements, abdominal pain, nausea, vomiting. No new fevers or chills. No acute complaints and no events overnight.
Objective
Data Reviewed
Laboratory Data:
Laboratory Results
04/30/25 08:44
04/30/25 08:44
Laboratory Results
Total Bilirubin 1.1 mg/dl (0.2-1.3) 04/28/25 09:05
AST 24 U/L (17-59) 04/28/25 09:05
ALT 22 U/L (0-50) 04/28/25 09:05
Alkaline Phosphatase 59 U/L (38-126) 04/28/25 09:05
Lipase 233 U/L (23-300) 04/28/25 09:05
Vital Signs and I&O:
Vital Signs
Temp Pulse Resp BP Pulse Ox
98.2 F 67 18 112/73 98
04/30/25 07:11 04/30/25 07:11 04/30/25 07:11 04/30/25 07:11 04/30/25 08:15
I&O
04/29/25 04/30/25 05/01/25
06:59 06:59 06:59
Intake Total 1200 / 1200 1999 / 1999
Balance 1200 / 1200 1999 / 1999
Physical Exam
Physical Exam
HEENT: Anicteric and Moist mucous membranes
Cardiology: Normal Sinus Rhythm, S1 and S2
Pulmonary: Clear
GI: Soft, Non Distended, Non Tender and Normal Bowel Sounds
Extremities: No Edema and Warm
--- NOTE | 2025-04-30 14:28 | W.DS.TRANS ---
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
-
Discharge Instructions:
Discharge Diagnosis/Procedures Crohns flare
Diet Low Residue
Activity As tolerated
Bathing Restrictions None
Instructions:
Stand-Alone Forms:
Changes to Home Medications: No
Discharge Medications:
DC Medications w/original date entered in [place]
adalimumab 80 mg/0.8 mL subcutaneous pen kit 80 mg SC Q2W Crohn's disease 04/26/25
buspirone 15 mg tablet 15 mg PO TID Mental Health/Anxiety 04/26/25
duloxetine 40 mg capsule,delayed release 40 mg PO HS Mental Health 04/26/25
ondansetron 4 mg disintegrating tablet 4 mg PO Q8HPRN PRN nausea and vomiting 04/28/25
prednisone 10 mg tablet 10 mg PO DIRECTED #60 tabs 04/30/25
Home Medication Changes
Pending Results: No
Total time spent discharging patient (in min): 41
[2025-04-30 14:47] VITALS: BP 119/79
== END 2025-04-30 14:50 | disposition home or self-care (01) | DRG 392 ==
LOC: 4 WEST ACU 10:49
PROVIDERS: ADMITTING PHYSICIAN Internal Medicine; CONSULT PHYSICIAN Internal Medicine Gastroenterology; EMERGENCY PHYSICIAN Emergency Medicine; FAMILY PHYSICIAN Family Medicine
DX: K52.89 Other specified noninfective gastroenteritis and colitis (principal); K50.818 Crohn's disease of both small and large intestine with other complication; F32.A Depression, unspecified; F41.9 Anxiety disorder, unspecified; E87.6 Hypokalemia; Z79.620 Long term (current) use of immunosuppressive biologic; Z79.52 Long term (current) use of systemic steroids
CPT/HCPCS: 74022; 80048; 80053; 83690; 85025; 85027; 85652; 86140; 96361; 96365; 96375; 96376; 99284

== ENCOUNTER 2025-08-02 12:50 | Inpatient (IN) | payer BC, SELFPAY ==
[2025-08-02] VITALS (11 sets, daily range): BP systolic 107–148; BP diastolic 65–96; BMI 26.9
[2025-08-02] MEDS: DILAUDID 0.5 MG IV ×2 (07:05→07:56)
[2025-08-02] MEDS: ZOFRAN 4 MG IV ×2 (07:06→07:55)
[2025-08-02] MEDS: NSS 1000 IV ×2 (07:06→14:09)
[2025-08-02 07:29] LABS: Hematocrit 39.9 % (39.0-52.0); Hemoglobin 14.6 g/dL (13.0-18.0); Mean Corp Hgb Conc. 36.6 g/dL (33.0-37.0); Mean Corpuscular Volume 84.9 fL (80.0-94.0); Nucleated Red Blood Cells % 0 % (-); Platelet Count 226 10^3/uL (130-400); Red Cell Dist. Width 11.0 % (11.5-14.5)
[2025-08-02 07:41] LABS: ALT (SGPT) 31 U/L (0-50); AST (SGOT) 27 U/L (17-59); Albumin 4.8 g/dl (3.5-5.0); Alkaline Phosphatase 55 U/L (38-126); Blood Urea Nitrogen 12 mg/dl (9-20); Calcium 9.7 mg/dl (8.4-10.2); Carbon Dioxide 19 mmol/L (22-30); Chloride 107 mmol/L (98-107); Estimated Creatinine Clearance > 125 ml/min; Glucose 122 mg/dl (70-99); Lipase 145 U/L (23-300); Potassium 3.5 mmol/L (3.5-5.1); Sodium 140 mmol/L (135-145); Total Protein 7.8 g/dl (6.3-8.2); eGFR > 60.00
[2025-08-02 07:53] LABS: COVID-19 Antigen Negative (Negative)
--- NOTE | 2025-08-02 08:06 | ED.GENMED ---
History of Present Illness
General
Chief Complaint: Abdominal Pain
Source: patient and records
Exam Limitations: none
Time Seen by Provider: 08/02/25 06:42
Nursing documentation reviewed up to this point in time: agreed with
History of Present Illness
History of Present Illness:
24-year-old male with a past medical history of Crohn's disease who presents to the emergency department for evaluation of abdominal pain. Patient reports onset of symptoms this morning and have been constant since onset. He reports periumbilical
abdominal pain radiates diffusely. He reports associated nausea and profuse vomiting. He has multiple episodes of nonbloody diarrhea. Denies fever or chills. He does have some mild dizziness. He denies any other acute complaints. He did have
an admission in April with similar related to a Crohn's flare. He is on Humira�had been getting injections every 2 weeks but this was increased to every week in April after his most recent flare.
Past History
Past History
ED Past Medical History: Psychiatric (depression, anxiety) and Other (crohn's )
ED Past Surgical History: Other (drainage of abscess)
Social History
Tobacco: Non-smoker
Alcohol: Occasional
Drug: Marijuana (occasional but none recently)
Personal: Single
Living: with family
Review of Systems
Review of Systems
All Other Systems: ROS reviewed and negative except as documented in HPI and ROS
Constitutional: Reports fatigue; Denies fever or chills
Respiratory: Denies trouble breathing
Cardiac: Denies chest pain
ABD/GI: Reports abdominal pain, nausea, vomiting and diarrhea
: Denies flank pain
Musculoskeletal: Denies neck pain or back pain
Neurological: Reports dizzy; Denies headache
Phy Exam
Physical Exam
Physical Exam:
General: Awake, alert, oriented x3; actively vomiting into emesis bag
Head: Normocephalic, atraumatic
Eyes: Conjunctiva normal, sclera anicteric
Throat: Airway intact, handling secretions
Neck: Trachea midline, supple without meningismus
Lungs: Clear to auscultation bilaterally, no wheezing, rales, rhonchi
Heart: Regular rate and rhythm, no murmurs, gallops, or rubs
Abd: Soft, non distended, mild to moderate diffuse tenderness
Neuro: Grossly intact
Skin: Warm and dry
Extremities: No edema in extremities, equal pulses in all extremities
Scores
Heart Failure Risk
Heart Failure Risk Score: Not Applicable
Heart Score for Chest Pain Patients
STEMI patient?: Not applicable
Withdrawal Assessment of Alcohol
Withdrawal Assessment Completed?: Not applicable
Sepsis
Sepsis Screening
Sepsis Assessment: Sepsis Ruled Out
Sepsis Screen
Sepsis Screen: Sepsis Ruled Out
Date: 08/02/25
Time: 15:55
Course
Orders/Labs/Results
Orders:
Orders
08/02/25 06:43
Electrocardiogram (*1) Urgent
Reason for Study: QTc Monitoring
Ondansetron Injectable [Zofran] 4 mg IV NOW STA
08/02/25 06:44
EKG- Treatment ONCE
0.9% Sodium Chloride 1000 ml [Nss] 1,000 ml IV BOLUS
08/02/25 06:45
HYDROmorphone [Dilaudid] 0.5 mg IV NOW STA
08/02/25 07:12
C-Reactive Protein Urgent
Comment: ADD ON
COVID-19 Antigen Urgent
Source: Nasal Swab
Complete Blood Count/With Diff Urgent
Comprehensive Metabolic Panel Urgent
Erythrocyte Sed Rate Urgent
Comment: ADD ON
Lipase Urgent
Influenza A+B Rapid Molecular Urgent
JAVAD Source: Nasal Swab
Specimen Description:
08/02/25 07:41
HYDROmorphone [Dilaudid] 0.5 mg IV NOW STA
Ondansetron Injectable [Zofran] 4 mg IV NOW STA
08/02/25 08:05
CT Abd/pelvis W Iv Cont Urgent
Comment:
Reason For Exam: severe abd pain, N/V; h/o crohns
08/02/25 08:52
Morphine Sulfate 4 mg IV NOW STA
08/02/25 11:44
GASTROINTESTINAL CONSULT Urgent
Consulting Provider: Evelin Dougherty
Was physician already notified: Yes
Norovirus by PCR Urgent
JAVAD Source: Feces/Stool
Specimen Description:
STOOL [C difficile Antigen & Toxins] Urgent
JAVAD Source: Feces/Stool
Specimen Description:
Stool Culture Urgent
JAVAD Source: Feces/Stool
Specimen Description:
Morphine Sulfate 4 mg IV NOW STA
08/02/25 12:05
Admit/Transfer Patient As Directed
Co-Sign Provider:
Level of Care: Inpatient admission
Assign to:: Medical/Surgical
Physician / Group: Hospitalist: [place]
Diagnosis: Chron's flare
Reason for Hospitalization: Chron's flare
Expected length of stay greater than two midnights?: Yes
ELOS- Estimated Length of Stay in days: 3
I certify the patient meets the requirements for IP care: Yes
PRN Pain Medication Management As Directed
May give lesser potent ordered pain med per pt: Yes
preference::
Protocol:: Medication orders for pain may be administered in a
manner that supports deferring to patient preference
when the pt is:
- Requesting an ordered lesser potent pain medication.
Least to most potent pain medications are defined
as: acetaminophen < NSAID < tramadol < opioids
(morphine, oxycodone, hydromorphone).
- Requesting a lesser dose of the same medication IF
ORDERED.
- Requesting a less intrusive route of administration
if both routes are prescribed by the provider (PO <
IV).
08/02/25 12:06
Code Status As Directed
Resuscitation Status: Full Code
08/02/25 12:26
Morphine Sulfate 4 mg IV Q4HPRN PRN
08/02/25 12:43
Add On- LAB Routine
Tests Added?: CRP, ESR
08/02/25 12:44
Giardia/Cryptosporidium Ag Routine
JAVAD Source: Feces/Stool
Specimen Description:
Stool For WBC Routine
JAVAD Source: Feces/Stool
Specimen Description:
08/02/25 13:14
0.9% Sodium Chloride 1000 ml [Nss] 1,000 ml IV 75 mls/hr
HYDROmorphone [Dilaudid] 0.5 mg IV Q4HPRN PRN
Ondansetron Injectable [Zofran] 4 mg IV Q6HPRN PRN
08/02/25 13:14
Activity As Directed
Activity Level: As Tolerated
Vital Signs As Directed
Frequency: Per unit guidelines
DX Deep Vein Thrombosis Video Routine
08/02/25 Dinner
Clear Liquid
At Your Request: Full Participation
08/02/25 16:00
Buspirone [Buspar] 15 mg PO TID
08/02/25 18:00
Enoxaparin Sodium [Lovenox] 40 mg SC QPM
08/02/25 22:00
Duloxetine Delayed Release [Cymbalta Delayed Release] 40 mg PO HS
08/03/25 06:00
Basic Metabolic Panel IN AM
Complete Blood Count/With Diff IN AM
Magnesium IN AM
08/04/25 06:00
Basic Metabolic Panel IN AM
Complete Blood Count/With Diff IN AM
08/05/25 06:00
Basic Metabolic Panel IN AM
Complete Blood Count/With Diff IN AM
Abnormal Lab Results
08/02/25
07:12
MCH 31.1 H pg
(27.0-31.0)
RDW 11.0 L %
(11.5-14.5)
Absolute Neuts (auto) 6.7 H 10^3/uL
(1.4-6.5)
Carbon Dioxide 19 L mmol/L
(22-30)
Glucose 122 H mg/dl
(70-99)
Total Bilirubin 1.4 H mg/dl
(0.2-1.3)
08/02/25 07:12
08/02/25 07:12
Vital Signs
Initial and Last Documented VS:
Initial Vital Signs
Temp Pulse Resp BP Pulse Ox
36.6 C 56 26 148/96 100
08/02/25 06:38 08/02/25 06:38 08/02/25 06:38 08/02/25 06:38 08/02/25 06:38
Last Documented Vital Signs
Temp Pulse Resp BP Pulse Ox
36.9 C 72 16 107/65 100
08/02/25 15:12 08/02/25 15:12 08/02/25 15:12 08/02/25 15:12 08/02/25 15:12
MDM/Problems Addressed
Differential Diagnosis Includes:
Crohn's flare, bowel obstruction, gastritis/enteritis, cholelithiasis, pancreatitis
MDM/Problems Addressed:
24-year-old male with a history of Crohn's disease presents with abdominal pain, nausea/vomiting/diarrhea similar to prior Crohn's flares. Vitals and exam are as above. Check labs including CBC and CMP, lipase. Check CT abdomen. Check EKG for
QTc monitoring. Pain control, antiemetics, IV fluids. Reassess after the above.
Patient still having significant symptoms after initial medications�will repeat doses of Dilaudid and Zofran, continue with IV fluids.
Labs reviewed: CBC and CMP no clinically significant abnormalities. CT abdomen shows signs consistent with significant colitis. Patient still very symptomatic will need repeat meds. At this point will require admission for continued management of
his symptoms. Suspect colitis is secondary to Crohn's flare however infectious colitis should be ruled out will send stool studies. Discussed with gastroenterology who will consult; recommending holding off on steroids until stool studies return
and if these are negative can start Solu-Medrol 20 mg every 8 hours. Discussed case with hospitalist for admission.
Chronic conditions affecting care:
Crohn's disease
*Radiology
Radiology exam reviewed: radiology read reviewed
*Pulse Oximetry
SaO2: 100
Patient hypoxic: no (100%)
*EKG
Interpreted by ED Provider?: Yes
Heart Rate: 54
Rate: bradycardiac
Rhythm: sinus
[place]: normal axis
Interval: normal interval and normal QT interval
QRS Pattern: normal QRS
Ischemia: no ischemia
*Critical Care Note
Total Time (30-74mins, 75-104mins- exclusive of procedures): Not Applicable
Data Reviewed
Review of Other/Old Records Reveals: Labs and Records
Source: patient and records
Patient Management
Discussion with other providers: Hospitalist (Discussed with hospitalist) and Audio/Visual Manager (Discussed with gastroenterology)
Escalation/DeEscalation of care consider admission/obs:
Admission indicated
ED Attending Note
-
Portions of this chart may have been created with voice recognition software.� Occasional wrong word or��sound alike� substitutions may have occurred due to the inherent limitations of voice recognition software.
Discharge Plan
Departure
Patient Disposition: Admit
Date of Disposition: 08/02/25
Time of Disposition: 11:47
Admit to doctor: Yves
Presentation/result/management discussed w/ accepting MD/DO: Hospitalist
Discharge Problem:
Colitis
Interventions
Interventions:
*Risk Screen - Suicide Last Done: 08/02/25 06:38
*General Assessment Last Done: 08/02/25 11:02
*Neglect/Abuse Screening Last Done: 08/02/25 06:38
*ED COVID-19 Vaccine History Last Done: 08/02/25 08:01
*ED Influenza Vaccine History Last Done: 08/02/25 08:01
[facility] Fall Risk Assessment Tool Last Done: 08/02/25 07:54
*Nursing Disposition Last Done: 08/02/25 12:48
DX-Wuwgad-Hwfojuuzzv Assessment Last Done: 08/02/25 08:02
Discharge Date and Time
Discharge Date/Time: 08/02/25 13:01
[2025-08-02] MEDS: MORPHINE SULFATE 4 MG IV ×3 (08:56→18:32)
--- NOTE | 2025-08-02 12:10 | HPS.HSE ---
Family Physician
-
Family Physician: Soledad Velasquez
Chief Complaint
-
Abdominal pain and diarrhea
History of Present Illness
Mr. Naranjo is a 24-year-old male with medical history of Crohn's disease and anxiety/depression who presented with abdominal pain and associated nausea, vomiting, and diarrhea. His stools were nonbloody. His symptoms began 2 to 3 days prior to
arrival. He has been on Humira every 2 weeks for management of his Crohn disease. After his hospitalization for acute Crohn's flare in April his Humira dose was increased to weekly. In the ED today he was afebrile and normotensive. His lab
work was remarkable only for serum bicarb of 19 and T. bili very mildly elevated at 1.4. COVID and influenza were negative. CT imaging of his abdomen and pelvis showed extensive inflammation involving his ascending, transverse, and descending
colon. He has no evidence of pneumatosis on imaging. He was given IV fluids and pain medication. He has been admitted for further evaluation and management of suspected acute Crohn's flare.
Medical History
Past Medical History
Past Medical History: Reports Other
Additional Past Medical History:
Crohn's disease, anxiety/depression
Past Surgical History: Reports None
Social History
Tobacco: Non-smoker
Alcohol: Occasional
Drug: Marijuana (Occasional)
Family History
Family History: Not pertinent
Allergies / Home Medications
Allergies reflects when Allergies were last updated in [facility].
Home Medications with original date entered in [facility]
Allergy/Medication List:
Allergies
Allergy/AdvReac Type Severity Reaction Status Date / Time
No Known Allergies Allergy Verified 08/02/25 06:40
Home Medications
buspirone 15 mg tablet 15 mg PO TID Mental Health/Anxiety 04/26/25
duloxetine 40 mg capsule,delayed release 40 mg PO HS Mental Health 04/26/25
adalimumab-atto 40 mg/0.8 mL subcutaneous auto-injector (Amjevita(CF) Autoinjector) 40 mg SC TH 08/02/25
Review of Systems
-
History Source: Patient
A 12 point ROS was completed and negative except as noted: Yes
Abdomen/GI: Reports Abdominal Pain, Nausea and Diarrhea
Physical Exam
Vital Signs
Vital Signs
Temp Pulse Resp BP Pulse Ox
98 F 74 16 128/81 99
08/02/25 06:38 08/02/25 12:04 08/02/25 12:04 08/02/25 12:00 08/02/25 12:00
Physical Exam
General: No Apparent Distress
Laboratory Results
-
08/02/25 07:12
08/02/25 07:12
Laboratory Results
Total Bilirubin 1.4 mg/dl (0.2-1.3) H 08/02/25 07:12
AST 27 U/L (17-59) 08/02/25 07:12
ALT 31 U/L (0-50) 08/02/25 07:12
Alkaline Phosphatase 55 U/L (38-126) 08/02/25 07:12
Lipase 145 U/L (23-300) 08/02/25 07:12
Impression/Plan
-
General: No Apparent Distress, Comfortable and Conversant
HEENT: NormoCephalic, Moist mucous membranes, Atraumatic
Respiratory: Clear and Non Labored Respirations
Cardiac: S1/S2 and Regular Rhythm; No Rub or Gallop
GI: Soft, diffuse TTP
Musculoskeletal: No Edema, no deformity
Skin: Warm and dry
: NO Sesay
Neuro: Awake, Alert, Nonfocal/grossly intact
Psych: Calm and Intact Judgment/Insight
Mr. Naranjo is a 24-year-old male with medical history of Crohn's disease and anxiety/depression who presented with abdominal pain and associated nausea, vomiting, and diarrhea. His stools were nonbloody. His symptoms began 2 to 3 days prior to
arrival. He has been on Humira every 2 weeks for management of his Crohn disease. After his hospitalization for acute Crohn's flare in April his Humira dose was increased to weekly. In the ED today he was afebrile and normotensive. His lab
work was remarkable only for serum bicarb of 19 and T. bili very mildly elevated at 1.4. COVID and influenza were negative. CT imaging of his abdomen and pelvis showed extensive inflammation involving his ascending, transverse, and descending
colon. He has no evidence of pneumatosis on imaging. He was given IV fluids and pain medication. He has been admitted for further evaluation and management of suspected acute Crohn's flare.
Suspected acute Crohn's flare:
- Check stool studies prior to initiating steroid treatment
- Pain control and antiemetics as needed
- IV fluids
- Clear liquid diet for now
- GI following
Mild hyperbilirubinemia:
- Very mildly elevated T. bili of 1.4
- Will monitor until within normal limits
Anxiety/depression:
- Continue home buspirone 15 mg 3 times daily and duloxetine 40 mg at night
DVT prophylaxis: Lovenox
CODE STATUS: Full code
--- NOTE | 2025-08-02 12:18 | CON.GI ---
Addendum entered and electronically signed by Evelin Dougherty DO 08/02/25 14:49:
The patient was seen and examined by me independently in collaboration with the nurse practitioner.
Past medical history/social history/medications/allergies/family history reviewed.
Lab data and imaging data reviewed.
Godfrey is a 24 y.o. male with pmhx small bowel crohns disease on weekly Humira admitted with worsening abdominal pain, nausea and vomiting since Saturday. Of note, [facility], some focal active ileitis and reports of
small perianal fistula, some reflux but otherwise normal EGD. ADA Ab level negative, low level 4.4,, and subsequently had Humira changed from q2 weeks to weekly. He was last admitted in April with a flare, treated with steroids, but was having
insurance issues and had not been taking Humira as scheduled. Currently, he states his symptoms have resolved.
CT A/P shows 'extensive colitis involving the ascending colon, transverse colon, and descending colon. No evidence of pneumatosis. No bowel obstruction.'
CT A/P 04/2025: 'Mild to moderate diffuse wall thickening involving the colon and distal ileum, which likely represents colitis and distal ileitis in this patient with a history of Crohn's disease.'
-Recent colonoscopy with colonic biopsies showed NO evidence of colonic involvement
-Recommend stool studies
-CRP
-check MRI pelvis to further evaluate perianal fistula-- IFX would be a better option for him
-eventually, would recommend dedicated small bowel imaging with CTE or MRE
Original Note:
Consultation
-
Date/Time Consultation Requested: 08/02/25 1200
Date/Time Consultation Performed: 08/02/25 1215
Requesting Provider: Geovanni Larson MD
Performing Provider: ELEN Molina, Connie Dougherty DO
Reason for Consultation: eval for crohns flare
Medical History
Chief Complaint / HPI
Chief Complaint: abdominal pain wih nausea and vomiting
History of Present Illness:
Pt is a 24yo with hx crohn's disease was following with Dr. White at [facility] but now states he switch to [facility] but unable to state current MD on Humira therapy, anxiety, depression presents with worsening abdominal pain, nausea,
vomiting, diarrhea for 24 hours. In review of chart pt with diagnosis around middle school with wt loss, fatigue, malnutrition and diarrhea. He denies hx any prior surgical intevention. Pt also noted with perirectal abscess requiring drainage
around that time. Pt was on oral meds til 2019 and then changed to Humira. EGD and colonoscopy were done [address]22 Dr. White and reportedly showing no signs of disease. In April pt was admitted with concern for crohns flare with lapse in
medication coverage due to insurance issues. At that time he was placed on IV steroids with and discharged home with prednisone taper. He changed his Humira to weekly. He also states recent EGD/colon at [facility] that he recalls as stable. He
now presents with several days of recurrent abdominal pain with nausea and vomiting. Ct on admission with Extensive colitis involving the ascending colon, transverse colon, and descending colon. No evidence of pneumatosis. No bowel obstruction.
In review with patient he states he was improved til several days ago. He currently admits to abdominal pain worse left mid abdomen with increased GERD, nausea, vomiting, and diarrhea with noted incontinence of stool overnight. He denies
dysphagia or rectal bleeding. Denies rashes, visual problems, or joint pain with symptoms.
Past Medical History
Past Medical History: Psychiatric (depression/anxiety ) and Other (crohn's disease)
Past Surgical History: Other (Drainage of perirectal abscess under anesthesia)
Social History
Tobacco: Non-Smoker
Alcohol: Occasional
Drug: Marijuana
Personal: Single
Living: With Family (lives with laura)
Employment: Employed
Family History
Family History: Other (no family hx IBD or colon CA or polyps)
Allergies / Home Medications
Allergy/AdvReac Type Severity Reaction Status Date / Time
No Known Allergies Allergy Verified 08/02/25 06:40
�Medication �Instructions �Recorded
buspirone 15 mg tablet 15 mg PO TID Mental Health/Anxiety 04/26/25
duloxetine 40 mg capsule,delayed 40 mg PO HS Mental Health 04/26/25
release
adalimumab-atto 40 mg/0.8 mL 40 mg SC TH 08/02/25
subcutaneous auto-injector
(Amjevita(CF) Autoinjector)
Review of Systems
-
History Source: Patient
Constitutional: Reports No Symptoms
EENT: Reports No Symptoms
Respiratory: Reports No Symptoms
Cardiac: Reports No Symptoms
Abdomen/GI: Reports Abdominal Pain, Nausea, Vomiting and Diarrhea
: Reports No Symptoms
Musculoskeletal: Reports No Symptoms
Skin: Reports No Symptoms
Neurological: Reports No Symptoms
Endocrine: Reports No Symptoms
Hematologic/Lymphatic: Reports No Symptoms
Vital Signs
Temp Pulse Resp BP Pulse Ox
98 F 74 16 128/81 99
08/02/25 06:38 08/02/25 12:04 08/02/25 12:04 08/02/25 12:00 08/02/25 12:00
Physical Exam
Exam
General: Well Developed, Well Nourished and No Apparent Distress
Respiratory: Clear
Cardiac: Regular Rhythm
GI: Soft, Non Distended and Tender (diffuse worse left mid abdomen )
Musculoskeletal: No Clubbing and No Cyanosis
Skin: Warm and Dry
Neuro: Awake, Alert and AO x 3
Psych: Calm
Results
WBC 9.5 10^3/uL (4.8-10.8) 08/02/25 07:12
Hgb 14.6 g/dL (13.0-18.0) 08/02/25 07:12
Hct 39.9 % (39.0-52.0) 08/02/25 07:12
MCV 84.9 fL (80.0-94.0) 08/02/25 07:12
Plt Count 226 10^3/uL (130-400) 08/02/25 07:12
Absolute Neuts (auto) 6.7 10^3/uL (1.4-6.5) H 08/02/25 07:12
Sodium 140 mmol/L (135-145) 08/02/25 07:12
Potassium 3.5 mmol/L (3.5-5.1) 08/02/25 07:12
Chloride 107 mmol/L (98-107) 08/02/25 07:12
Carbon Dioxide 19 mmol/L (22-30) L 08/02/25 07:12
BUN 12 mg/dl (9-20) 08/02/25 07:12
Creatinine 0.9 mg/dL (0.7-1.3) 08/02/25 07:12
Calcium 9.7 mg/dl (8.4-10.2) 08/02/25 07:12
Total Bilirubin 1.4 mg/dl (0.2-1.3) H 08/02/25 07:12
AST 27 U/L (17-59) 08/02/25 07:12
ALT 31 U/L (0-50) 08/02/25 07:12
Alkaline Phosphatase 55 U/L (38-126) 08/02/25 07:12
Lipase 145 U/L (23-300) 08/02/25 07:12
Diagnostic Image Results:
08/02/25 Ct A/p with IV contrast
Extensive colitis involving the ascending colon, transverse colon, and descending colon. No evidence of pneumatosis. No bowel obstruction.
No obstructive uropathy.
Trace free fluid in the pelvis. No free air.
04/26/25 CT A/pwith IV contrast
IMPRESSION: Mild to moderate diffuse wall thickening involving the colon and distal ileum, which likely represents colitis and distal ileitis in this patient with a history of Crohn's disease.
No evidence for bowel obstruction or free intraperitoneal air.
The appendix appears within normal limits.
Small focus of calcification involving the right common iliac artery in this 24-year-old. Please correlate with risk factors for atherosclerotic disease.
Prior GI Procedures:
EGD: recently completed [facility]
Colonoscopy: recently completed [facility]
Assessment / Plan
-
Pt is a 24yo with hx crohn's disease was following with Dr. White at [facility] but now states he switch to [facility] but unable to state current MD on Humira therapy, anxiety, depression presents with worsening abdominal pain, nausea,
vomiting, diarrhea for 24 hours. In review of chart pt with diagnosis around middle school with wt loss, fatigue, malnutrition and diarrhea. He denies hx any prior surgical intervention. Pt also noted with perirectal abscess requiring drainage
around that time. Pt was on oral meds til 2019 and then changed to Humira. EGD and colonoscopy were done 2022 Dr. White and reportedly showing no signs of disease. In April pt was admitted with concern for crohns flare with lapse in
medication coverage due to insurance issues. At that time he was placed on IV steroids with and discharged home with prednisone taper. He changed his Humira to weekly. He also states recent EGD/colon at [facility] that he recalls as stable. He
now presents with several days of recurrent abdominal pain with nausea and vomiting. Ct on admission with Extensive colitis involving the ascending colon, transverse colon, and descending colon. No evidence of pneumatosis. No bowel obstruction.
-abdominal pain with nausea/vomiting and diarrhea
-CT with extensive colitis
-hx crohns with recent increased humira dosing in April
-minimal increased bilirubin
PLAN:etiology of symptoms concern for crohns flare vs infectious vs other
check stool studies
add CRP and ESR
pt will try to find recent EGD and colon in portal along with now following MD from [facility]'s
will review for steroid course with Dr. Dougherty
cont IVF
when nausea/vomiting improved consider clear diet
stressed need for DVT prophylaxis with patient with active IBD
also reviewed with patient will need to review with primary GI for change of biologic therapy
all questions answered
pain control per hospitalist - try to avoid narcotics
repeat LFT's in AM with minimal increased bilirubin
-
-
Thank you for consultation and allowing me to participate in the patient's care. Please call the senior formulation scientist GI physician during the after hours with any questions or concerns.
--- NOTE | 2025-08-02 13:49 | PTCARENOTE ---
Pt admitted into 1147 for Crohn's flare. AOx3, pt reports pain controlled. Assssment as documentd, call phillips within reach.
--- NOTE | 2025-08-02 14:18 | CM ---
Chart reviewed. Spoke with patient and his significant other Hiwot at bedside
Lives with SO
no DME
Independent with ADLs and ambulation
PCP Jen Velasquez
[facility] in [place]
no hx of VN nor SNF
DCP is to go home
No dc needs at this time but will continue to follow up for dcp needs
[2025-08-02] MEDS: BUSPAR 15 MG PO ×2 (15:11→21:12)
[2025-08-02 16:05] LABS: C-Reactive Protein < 5.00 mg/L (0.0-10.00)
[2025-08-02] MEDS: LOVENOX 40 MG SC (17:16)
[2025-08-02] MEDS: CYMBALTA DELAYED RELEASE 40 MG PO (21:12)
[2025-08-03] MEDS: NSS 1000 IV (02:25)
[2025-08-03] MEDS: MORPHINE SULFATE 4 MG IV (02:25)
[2025-08-03] MEDS: ZOFRAN 4 MG IV (02:25)
[2025-08-03] MEDS: DILAUDID 0.5 MG IV (03:33)
[2025-08-03] MEDS: COMPAZINE 5 MG IV (03:53)
[2025-08-03 07:48] LABS: ALT (SGPT) 28 U/L (0-50); AST (SGOT) 23 U/L (17-59); Albumin 4.1 g/dl (3.5-5.0); Alkaline Phosphatase 45 U/L (38-126); Blood Urea Nitrogen 9 mg/dl (9-20); Calcium 8.8 mg/dl (8.4-10.2); Carbon Dioxide 25 mmol/L (22-30); Chloride 105 mmol/L (98-107); Estimated Creatinine Clearance > 125 ml/min; Glucose 83 mg/dl (70-99); Magnesium 1.7 mg/dl (1.6-2.3); Potassium 4.0 mmol/L (3.5-5.1); Sodium 136 mmol/L (135-145); Total Protein 6.6 g/dl (6.3-8.2); eGFR > 60.00
[2025-08-03 08:03] LABS: Hematocrit 36.6 % (39.0-52.0); Hemoglobin 13.1 g/dL (13.0-18.0); Mean Corp Hgb Conc. 35.8 g/dL (33.0-37.0); Mean Corpuscular Volume 86.1 fL (80.0-94.0); Nucleated Red Blood Cells % 0 % (-); Red Cell Dist. Width 10.9 % (11.5-14.5)
[2025-08-03 08:15] VITALS: BP 104/54
[2025-08-03] MEDS: BUSPAR 15 MG PO ×3 (09:34→21:15)
[2025-08-03 11:13] LABS: Platelet Count 170 10^3/uL (130-400)
--- NOTE | 2025-08-03 12:51 | W.PN.HOSP.TC ---
Today's Communication/Plan
-
Assessment / Plan
Assessment / Plan
General: No Apparent Distress, Comfortable and Conversant
HEENT: NormoCephalic, Moist mucous membranes, Atraumatic
Respiratory: Clear and Non Labored Respirations
Cardiac: S1/S2 and Regular Rhythm; No Rub or Gallop
GI: Soft, mild TTP
Musculoskeletal: No Edema, no deformity
Skin: Warm and dry
: NO Sesay
Neuro: Awake, Alert, Nonfocal/grossly intact
Psych: Calm and Intact Judgment/Insight
Mr. Naranjo is a 24-year-old male with medical history of Crohn's disease and anxiety/depression who presented with abdominal pain and associated nausea, vomiting, and diarrhea. His stools were nonbloody. His symptoms began 2 to 3 days prior to
arrival. He has been on Humira every 2 weeks for management of his Crohn disease. After his hospitalization for acute Crohn's flare in April his Humira dose was increased to weekly. In the ED today he was afebrile and normotensive. His lab
work was remarkable only for serum bicarb of 19 and T. bili very mildly elevated at 1.4. COVID and influenza were negative. CT imaging of his abdomen and pelvis showed extensive inflammation involving his ascending, transverse, and descending
colon. He has no evidence of pneumatosis on imaging. He was given IV fluids and pain medication. He has been admitted for further evaluation and management of suspected acute Crohn's flare.
Suspected acute Crohn's flare:
- Abdominal pain improved today
- Would like to check stool studies prior to initiating steroid treatment, however no bowel movement since admission
- Pain control and antiemetics as needed
- Checking MRI pelvis to evaluate for perianal fistula
- Further recommendations per GI
- Continue IV fluids and CLD for now
Mild hyperbilirubinemia:
- Very mildly elevated T. bili of 1.4 => 0.8
- Now resolved
Anxiety/depression:
- Continue home buspirone 15 mg 3 times daily and duloxetine 40 mg at night
DVT prophylaxis: Lovenox
CODE STATUS: Full code
Anticipated Discharge: 24 - 48 hours
Subjective/Interval History
-
Date of Service: August 03, 2025
Patient was seen and examined at bedside this morning. Abdominal pain has significantly improved. No bowel movements since admission. MRI pending
Objective Data
-
Labs:
Laboratory Results
08/03/25
06:58
WBC 7.2
Hgb 13.1
Hct 36.6 L
Plt Count 170 D
Sodium 136
Potassium 4.0
Chloride 105
Carbon Dioxide 25
BUN 9
Creatinine 0.8
Glucose 83
Calcium 8.8
Total Bilirubin 0.8
AST 23
ALT 28
Alkaline Phosphatase 45
Vital Signs:
Vital Signs
Temp Pulse Resp BP Pulse Ox
98.0 F 72 15 104/54 99
08/03/25 08:15 08/03/25 08:15 08/03/25 08:15 08/03/25 08:15 08/03/25 08:15
I&O
08/02/25 08/03/25 08/04/25
06:59 06:59 06:59
Intake Total 2430 / 2430
Balance 2430 / 2430
Review of Systems
-
History Source: Patient
All other systems: Reviewed and negative
Abdomen/GI: Reports Abdominal Pain
Physical Exam
-
General: No Apparent Distress
--- NOTE | 2025-08-03 14:15 | W.PN.GI.CBS2 ---
Addendum entered and electronically signed by Simone Carey MD 08/03/25 16:02:
I saw and examined the patient.
The ABSTRACT CHECKER or PA's note was reviewed and I agree with the note.
Comment: Feels well. No further diarrhea so no stool to submit
ABD soft NT
REC:
Await MR, going now, for f/u on perianal disease
Advance diet. If tolerates, can d/c with f/u with OP GI to discuss continuing weekly Humira vs switch biologics
Presentation could have been infectious colitis unrelated to his Crohn's vs Crohn's flare on Humira
Addendum entered and electronically signed by ELEN Lyman 08/03/25 14:37:
reviewed with nursing tolerating clears and advancing diet ok to hold IVF
Original Note:
Today's Communication / Plan
-
PLAN:etiology of symptoms concern for crohns flare vs infectious vs other
stool studies pending to be sent as no stools overnight
add CRP , 5 and ESR-8
recent EGD and colon as noted
steroids held awaiting stool studies but now also feeling improved
plan for MR pelvis to eval for any recurrent fistula
tolerating clear diet will allow low residue diet-- nursing will check with MRI if need to hold til completed
cont DVT prophylaxis with patient with active IBD
also reviewed with patient will need to review with primary GI for change of biologic therapy
pain control per hospitalist - try to avoid narcotics
repeat LFT's normal
eventually, would recommend dedicated small bowel imaging with CTE or MRE
if continued improvement OP follow up with [facility] gi to discuss ongoing therapy and hold steroids.
girlfriend updated
Assessment / Plan
-
Pt is a 24yo with hx crohn's disease was following with Dr. White at [facility] [place] but now states [facility] but unable to state current MD on Humira therapy, anxiety, depression presents with worsening abdominal pain, nausea,
vomiting, diarrhea for 24 hours. In review of chart pt with diagnosis around middle school with wt loss, fatigue, malnutrition and diarrhea. He denies hx any prior surgical intervention. Pt also noted with perirectal abscess requiring drainage
around that time. Pt was on oral meds til 2019 and then changed to Humira. EGD and colonoscopy were done 2022 Dr. White and reportedly showing no signs of disease. In April pt was admitted with concern for crohns flare with lapse in
medication coverage due to insurance issues. At that time he was placed on IV steroids with and discharged home with prednisone taper. He changed his Humira to weekly. Of note, recent EGD and Colonoscopy with [facility], some focal active
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 He now presents with several days of recurrent abdominal pain with nausea and vomiting. Ct on admission with Extensive colitis involving the ascending colon,
transverse colon, and descending colon. No evidence of pneumatosis. No bowel obstruction.
-abdominal pain with nausea/vomiting and diarrhea
-CT with extensive colitis
-hx crohns with recent increased Humira dosing in April
-minimal increased bilirubin normal on repeat
PLAN:etiology of symptoms concern for crohns flare vs infectious vs other
stool studies pending to be sent as no stools overnight
add CRP , 5 and ESR-8
recent EGD and colon as noted
steroids held awaiting stool studies but now also feeling improved
plan for MR pelvis to eval for any recurrent fistula
tolerating clear diet will allow low residue diet-- nursing will check with MRI if need to hold til completed
cont DVT prophylaxis with patient with active IBD
also reviewed with patient will need to review with primary GI for change of biologic therapy
pain control per hospitalist - try to avoid narcotics
repeat LFT's normal
eventually, would recommend dedicated small bowel imaging with CTE or MRE
if continued improvement OP follow up with [facility] gi to discuss ongoing therapy and hold steroids.
girlfriend updated
Subjective
Subjective
Date of Service: August 03, 2025
clear diet no stools, some pain overnight but now resolved
Objective
Data Reviewed
Laboratory Data:
Laboratory Results
08/03/25 06:58
08/03/25 06:58
Laboratory Results
Magnesium 1.7 mg/dl (1.6-2.3) 08/03/25 06:58
Total Bilirubin 0.8 mg/dl (0.2-1.3) 08/03/25 06:58
AST 23 U/L (17-59) 08/03/25 06:58
ALT 28 U/L (0-50) 08/03/25 06:58
Alkaline Phosphatase 45 U/L (38-126) 08/03/25 06:58
Lipase 145 U/L (23-300) 08/02/25 07:12
Vital Signs and I&O:
Vital Signs
Temp Pulse Resp BP Pulse Ox
98.0 F 72 15 104/54 99
08/03/25 08:15 08/03/25 08:15 08/03/25 08:15 08/03/25 08:15 08/03/25 08:15
I&O
08/02/25 08/03/25 08/04/25
06:59 06:59 06:59
Intake Total 2430 / 2430
Balance 2430 / 2430
Physical Exam
Physical Exam
HEENT: Anicteric and Moist mucous membranes
Cardiology: Normal Sinus Rhythm
Pulmonary: Clear
GI: Soft, Non Distended and Non Tender
Extremities: No Edema
Neuro: Non Focal
[2025-08-03 15:31] VITALS: BP 111/74
[2025-08-03] MEDS: LOVENOX 40 MG SC (17:36)
[2025-08-03] MEDS: CYMBALTA DELAYED RELEASE 40 MG PO (21:14)
[2025-08-03 23:00] VITALS: BP 105/66
[2025-08-04] MEDS: MORPHINE SULFATE 4 MG IV (06:19)
[2025-08-04 07:53] LABS: Blood Urea Nitrogen 7 mg/dl (9-20); Calcium 9.2 mg/dl (8.4-10.2); Carbon Dioxide 27 mmol/L (22-30); Chloride 104 mmol/L (98-107); Estimated Creatinine Clearance > 125 ml/min; Glucose 100 mg/dl (70-99); Potassium 3.8 mmol/L (3.5-5.1); Sodium 138 mmol/L (135-145); eGFR > 60.00
[2025-08-04 08:00] VITALS: BP 137/65
[2025-08-04] MEDS: BUSPAR 15 MG PO (08:12)
[2025-08-04 08:44] LABS: Hematocrit 36.9 % (39.0-52.0); Hemoglobin 13.5 g/dL (13.0-18.0); Mean Corp Hgb Conc. 36.6 g/dL (33.0-37.0); Mean Corpuscular Volume 84.2 fL (80.0-94.0); Nucleated Red Blood Cells % 0 % (-); Platelet Count 177 10^3/uL (130-400); Red Cell Dist. Width 10.8 % (11.5-14.5)
--- NOTE | 2025-08-04 11:30 | CM ---
Addendum entered by Mere Padron 08/04/25 14:02:
patient discharged by nursing before case management met with patient to discuss DC plans
Addendum entered by Mere Padron 08/04/25 13:43:
Plan: discharge to home; no needs
Original Note:
Chart reviewed; case management will monitor and support needs when stable for discharge
--- NOTE | 2025-08-04 13:13 | W.DCSUMMARY ---
Discharge Summary
Discharge Data
Date of Admission: 08/02/25
Date of Discharge: 08/04/25
Total time spent discharging patient (in min): 44
-
Pending Results: No
Hospital Course
Mr. Naranjo is a 24-year-old male with medical history of Crohn's disease and anxiety/depression who presented with abdominal pain and associated nausea, vomiting, and diarrhea. His stools were nonbloody. His symptoms began 2 to 3 days prior to
arrival. He has been on Humira every 2 weeks for management of his Crohn disease. After his hospitalization for acute Crohn's flare in April his Humira dose was increased to weekly. In the ED he was afebrile and normotensive. His lab work
was remarkable only for serum bicarb of 19 and T. bili very mildly elevated at 1.4. COVID and influenza were negative. CT imaging of his abdomen and pelvis showed extensive inflammation involving his ascending, transverse, and descending colon.
He had no evidence of pneumatosis on imaging. He was given IV fluids and pain medication. He was admitted for further evaluation and management of suspected acute Crohn's flare.
His stool studies were negative for C. difficile and norovirus. His abdominal pain and diarrhea resolved spontaneously without being started on steroids. He was given antinausea medications. He was able to tolerate a low residue diet. MRI pelvis
was obtained which showed a small anterior left intersphincteric perianal fistula. He was evaluated by GI who recommended close outpatient follow-up with his primary professor in family studies. Repeat labs showed normalization of his serum bicarb and
bilirubin levels. He was medically stable at time of hospital discharge.
General: No Apparent Distress, Comfortable and Conversant
HEENT: NormoCephalic, Moist mucous membranes, Atraumatic
Respiratory: Clear and Non Labored Respirations
Cardiac: Regular rhythm, heart rate 70
GI: Soft, Non Distended
Musculoskeletal: No Edema, no deformity
: NO Sesay
Neuro: Awake, Alert, Nonfocal/grossly intact
Psych: Calm and Intact Judgment/Insight
Discharge Plan
-
Patient Disposition: Home (Routine Discharge)
Discharge Diagnosis/Procedures: Acute Crohn's flare
Activity Restrictions/Additional Instructions:
You were admitted with abdominal pain and diarrhea. Your abdominal imaging showed extensive inflammation throughout your entire colon and a small anal fistula. Your abdominal pain resolved and you are able to tolerate a regular diet. Stool
studies were negative for C. difficile and norovirus. He will be discharged to home and will need close outpatient follow-up with your primary professor in family studies.
Referrals:
Soledad Velasquez MD [Family Provider, Internal Medicine]
Evelin Dougherty DO [Active, Gastroenterology]
Prescriptions:
New
ondansetron 4 mg tablet,disintegrating
4 mg PO Q8H PRN (Reason: nausea and vomiting) Qty: 20 0RF
Continued
buspirone 15 mg tablet
15 mg PO TID
duloxetine 40 mg capsule,delayed release(DR/EC)
40 mg PO HS
Amjevita(CF) Autoinjector 40 mg/0.8 mL Auto-Injector
40 mg SC TH
Discharge Orders:
Discharge Patient (As Directed); Ordered 08/04/25
Ordered By: Steven Moody
Discharge Date and Time
Print Language: [place]
== END 2025-08-04 13:54 | disposition home or self-care (01) | DRG 387 ==
LOC: 1 ACUTE 12:50
PROVIDERS: ADMITTING PHYSICIAN Internal Medicine; CONSULT PHYSICIAN Internal Medicine; EMERGENCY PHYSICIAN Emergency Medicine; FAMILY PHYSICIAN Family Medicine
DX: K50.913 Crohn's disease, unspecified, with fistula (principal); K60.30 Anal fistula, unspecified; F41.9 Anxiety disorder, unspecified; F32.A Depression, unspecified; Z79.899 Other long term (current) drug therapy; K21.9 Gastro-esophageal reflux disease without esophagitis; Z11.52 Encounter for screening for COVID-19; E80.6 Other disorders of bilirubin metabolism
CPT/HCPCS: 72197; 74177; 80048; 80053; 82248; 83690; 83735; 85025; 85652; 86140; 87045; 87046; 87324; 87328; 87329; 87427; 87449; 87502; 87798; 87811; 89055; 90656; 93005; 96361; 96374; 96375; 96376; 99285; A9575; G0008; Q9967